=== PATIENT | female | born 1945 | race Caucasian/White ===

== ENCOUNTER 2021-07-29 16:47 | Observation (INO) | payer MEDICARE, MEDICAID, SELFPAY ==
[2021-07-29 16:56] VITALS: BP 164/75; PULSE 60; RESP 20; O2SAT 91; BMI 16.2
--- NOTE | 2021-07-29 17:35 | XRR_ITS ---
PROCEDURE INFORMATION: Exam: XR Left Knee Exam date and time: 07/29/2021 5:45 PM Age: 76 years old Clinical indication: Injury or trauma; Fall; Blunt trauma; Knee; Left; Additional info: Pain. There May be duplicate images in this file. TECHNIQUE: Imaging protocol: XR Left knee. Views: 1 or 2 views. COMPARISON: No relevant prior studies available. FINDINGS: Bones/joints: Comminuted tibial plateau fracture extending to the metaphysis with some depression of the lateral tibial plateau, better evaluated on same-day CT scan, please refer to that report for further description. Comminuted displaced fibular head fracture. Soft tissues: Normal. XR/XR knee LT 1-2V [id number] IMPRESSION: 1. Comminuted tibial plateau fracture extending to the metaphysis with some depression of the lateral tibial plateau, better evaluated on same-day CT scan, please refer to that report for further description. 2. Comminuted displaced fibular head fracture.
--- NOTE | 2021-07-29 17:39 | W.ED.EXTPRO ---
Documented by User: Flex Servin DO 07/30/21 07:57 HPI - Extremity Problem General: Chief complaint: Extremity Injury, Lower Stated complaint: POSSIBLE KNEE DISLOCATION Time Seen by Provider: 07/29/21 17:33 Source: patient Mode of arrival: ambulatory Limitations: no limitations History of Present Illness: 76-year-old female presents to the emergency room with complaint of left knee injury. She was standing on a stepstool and got her leg caught on another adjacent piece of furniture lost her balance and fell landed on her left knee. She did not strike her head she not lose consciousness. Patient was given 100 mcg of fentanyl in route and 4 of Zofran. Complaint: extremity pain and joint pain Onset (ago): hour(s) Pain Consistency: constant Location: left and knee Radiation: none Associated symptoms: Deny chest pain Review of Systems Card: Denies: chest pain, edema, dyspnea on exertion or orthopnea Resp: Denies: dyspnea, productive cough or non-productive cough GI: Denies: abdominal pain, nausea, vomiting, diarrhea or constipation : Denies: flank pain, difficulty voiding, dysuria, urinary frequency or urinary urgency [facility] ED PFSH: Medical History Afib COPD (chronic obstructive pulmonary disease) HTN (hypertension) Surgical History No significant past surgical history Family History Denies family history of CAD (coronary artery disease) Chronic kidney disease (CKD) Social History Smoking and tobacco status: current every day smoker cigarettes Number of cigarettes per day: 6-10 Alcohol intake: never Substance/Drug Use: never Housing: House Physical Exam Const: GENERAL APPEARANCE: cooperative ORIENTATION/CONSCIOUSNESS: Yes awake, Yes oriented to person, Yes oriented to place and Yes oriented to time HENMT: COMMON NORMALS: normocephalic and atraumatic HEAD & SCALP: normocephalic and atraumatic Eye: COMMON NORMALS: Equal, round and reactive pupils present and EOMs intact bilaterally PUPIL: Yes Equal, round and reactive pupils present Neck/C-Spine: COMMON NORMALS: no JVD Resp: COMMON NORMALS: normal respiratory effort, No retractions, No use of accessory muscles and clear to auscultation bilaterally AUSCULTATION: clear to auscultation bilaterally Cardio: COMMON NORMALS: no JVD, regular rate, regular rhythm and No murmurs present (Cardio) RATE: regular rate RHYTHM: regular rhythm GI: COMMON NORMALS: Soft to palpation and No hepatosplenomegaly present AUSCULTATION: Yes normoactive bowel sounds PALPATION: Yes Soft to palpation, No Tenderness to palpation present (GI), No Guarding due to palpation present (GI) and Yes No hepatosplenomegaly present Extremity: COMMON NORMALS: normal to inspection, capillary refill normal, no clubbing, cyanosis or edema, no calf tenderness and no pedal edema Neuro: SENSORIUM/ORIENTATION: Yes oriented to person, Yes oriented to place and Yes oriented to time Course Vital Signs: Vital signs: Vital Signs Temperature 99.0 F 07/30/21 07:14 Pulse Rate 64 07/30/21 07:14 Respiratory Rate 16 07/30/21 07:14 Blood Pressure 134/51 07/30/21 07:14 Pulse Oximetry 99 07/30/21 07:14 MDM - Extremity (Nontraumatic) Medical Decision Making CT pending. Care signed out to Dr. Hunter at change of shift. See final notes for diagnosis and disposition. 76-year-old female checked out to me at shift change by Dr. Baires. This lady has a tibial plateau fracture. There is depression is 3.2 mm. There is a proximal fibular fracture as well. This lady is frail. We try to get her up several times with a walker, crutches, etc., and she is not tolerating mobility that way. She lives at home alone. She will have to be admitted. Orthopedics was consulted from the ER, and recommends a knee immobilizer, and therapy for now. Lab Data Radiology Impressions Knee X-Ray 07/29/21 17:35 IMPRESSION: 1. Comminuted tibial plateau fracture extending to the metaphysis with some depression of the lateral tibial plateau, better evaluated on same-day CT scan, please refer to that report for further description. 2. Comminuted displaced fibular head fracture. Knee CT 07/29/21 18:10 IMPRESSION: 1. Comminuted tibial plateau fracture extending into the metaphysis with some depression of the lateral plateau by up to 3.2 mm. 2. Proximal fibular comminuted displaced fracture. 3. Moderate joint space effusion. 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 [employer] Fwd Exam Comprehensive Documented by User: Misha Hunter DO 07/30/21 00:53 HPI - Extremity Problem General: Chief complaint: Extremity Injury, Lower Stated complaint: POSSIBLE KNEE DISLOCATION Time Seen by Provider: 07/29/21 17:33 [facility] ED PFSH: Medical History Afib COPD (chronic obstructive pulmonary disease) HTN (hypertension) Surgical History No significant past surgical history Family History Denies family history of CAD (coronary artery disease) Chronic kidney disease (CKD) Social History Smoking and tobacco status: current every day smoker cigarettes Number of cigarettes per day: 6-10 Alcohol intake: never Substance/Drug Use: never Housing: House Course Consultations: Consultation #1: rhiannon Time: 20:41 Consultation #2: sharon Time: 20:52 Vital Signs: Vital signs: Vital Signs Temperature 99.0 F 07/30/21 07:14 Pulse Rate 64 07/30/21 07:14 Respiratory Rate 16 07/30/21 07:14 Blood Pressure 134/51 07/30/21 07:14 Pulse Oximetry 99 07/30/21 07:14 MDM - Extremity (Nontraumatic) Medical Decision Making 76-year-old female checked out to me at shift change by Dr. Baires. This lady has a tibial plateau fracture. There is depression is 3.2 mm. There is a proximal fibular fracture as well. This lady is frail. We try to get her up several times with a walker, crutches, etc., and she is not tolerating mobility that way. She lives at home alone. She will have to be admitted. Orthopedics was consulted from the ER, and recommends a knee immobilizer, and therapy for now. Lab Data Radiology Impressions Knee X-Ray 07/29/21 17:35 IMPRESSION: 1. Comminuted tibial plateau fracture extending to the metaphysis with some depression of the lateral tibial plateau, better evaluated on same-day CT scan, please refer to that report for further description. 2. Comminuted displaced fibular head fracture. Knee CT 07/29/21 18:10 IMPRESSION: 1. Comminuted tibial plateau fracture extending into the metaphysis with some depression of the lateral plateau by up to 3.2 mm. 2. Proximal fibular comminuted displaced fracture. 3. Moderate joint space effusion. 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
[2021-07-29] MEDS: ketorolac 30 mg/mL INJ IVP (17:54)
[2021-07-29 17:56] VITALS: BP 181/86; PULSE 82; RESP 18; O2SAT 93
--- NOTE | 2021-07-29 18:10 | CTR_ITS ---
PROCEDURE INFORMATION: Exam: CT Left Lower Extremity Without Contrast, Knee Exam date and time: 07/29/2021 6:23 PM Age: 76 years old Clinical indication: Injury or trauma; Blunt trauma; Knee; Left; Patient HX: Fall from step stool - L tibial plateau FX; Additional info: Tibial platue FX TECHNIQUE: Imaging protocol: CT of the Left lower extremity without contrast was performed. Exam focused on the knee. Radiation optimization: All CT scans at this facility use at least one of these dose optimization techniques: automated exposure control; mA and/or kV adjustment per patient size (includes targeted exams where dose is matched to clinical indication); or iterative reconstruction. COMPARISON: CR XR knee LT 1-2V [id number] 07/29/2021 5:45 PM RADIATION DOSE METRICS: Total DLP (mGy-cm): 135.91 FINDINGS: Bones/joints: Comminuted tibial plateau fracture extending into the metaphysis with some depression of the lateral plateau by up to 3.2 mm. Proximal fibular comminuted displaced fracture. Moderate joint space effusion. Soft tissues: Normal. CT/CT knee LT wo con* [id number] IMPRESSION: 1. Comminuted tibial plateau fracture extending into the metaphysis with some depression of the lateral plateau by up to 3.2 mm. 2. Proximal fibular comminuted displaced fracture. 3. Moderate joint space effusion.
--- NOTE | 2021-07-29 20:50 | PM.HP ---
Providers/Chief Complaint Primary Care Provider: VINCE Cooper Chief Complaint: POSSIBLE KNEE DISLOCATION History of Present Illness Lakia Benoit is a 76 year old female who does not have significant past medical history other than hypertension, nonoxygen dependent COPD, newly diagnosed A. fib, presented after sustaining a fall at home. Patient stating that he was sitting up at home when she lost her balance and fell on the palate and her left leg got stuck under the stool. She was not able to bear weight, because excruciating pain she was brought into the ER for further evaluation. She was diagnosed with tibial plateau fracture. She is hemodynamically stable, she has been given fentanyl. She was not able to get up despite getting pain medication and knee immobilizer. Hospital service requested to admit her for PT evaluation in the morning. Brother is at the bedside. Patient is full code Patient is denying chest pain, shortness of breath, fever, smoking half a pack a day, no signs of stroke, no palpitations, Review of Systems Const: Denies: chills Eyes: Denies: change in vision ENMT: Denies: throat pain Card: Denies: chest pain Resp: Denies: dyspnea GI: Denies: abdominal pain : Denies: flank pain or urinary incontinence Musc: Reports: extremity pain and extremity swelling; Denies: neck pain Skin/Breast: Denies: rash Neuro: Denies: headache(s) Psych: Denies: anxiety Endo: Denies: polyuria Antonio/Lymph: Denies: easy bruising All/Imm: Denies: urticaria Medications/Allergies Allergies Allergy/AdvReac Type Severity Reaction Status Date / Time No Known Allergies Allergy Verified 07/29/21 17:54 PFSH Acute PFSH: Medical History Afib COPD (chronic obstructive pulmonary disease) HTN (hypertension) Surgical History No significant past surgical history Family History Denies family history of CAD (coronary artery disease) Chronic kidney disease (CKD) Social History Smoking and tobacco status: current every day smoker cigarettes Number of cigarettes per day: 6-10 Alcohol intake: never Substance/Drug Use: never Housing: House Vitals/I&O/Wt Last Vital Signs Pulse 82 07/29/21 17:56 Resp 18 07/29/21 17:56 BP 181/86 07/29/21 17:56 Pulse Ox 93 07/29/21 17:56 Weight last 48 hrs Weight 41.73 kg Physical Exam Narrative: Pleasant cooperative female Sitting at the bedside She has a knee immobilizer on left side Swelling of left leg noted as compared to right leg S1, S2 variable Hemodynamically stable Saturating well on room air Left knee pain 4/10 You know, PERRLA Nonfocal neuro exam No audible stridor or wheezing Saturating well on room air Pleasant and cooperative during evaluation Looks slightly dehydrated as well A&P Assessment and plan (1) Tibial fracture: Status: Acute Plan Tibial plateau fracture Dr. Martinez recommended nonsurgical/conservative management He recommended knee immobilizer, pain management She will need at least 2 weeks of DVT prophylaxis at home She was not able to walk on her own using crutches and knee immobilizer Will admit and request PT evaluation in the morning, Home health versus short-term rehab Continue cardiac diet Outpatient orthopedic follow-up History of A. 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
[2021-07-29 21:29] VITALS: BP 113/56; PULSE 72; RESP 20; O2SAT 93
[2021-07-29] MEDS: ondansetron 2 mg/ML SDV 2 mL 4 MG IVP (21:36)
[2021-07-29 21:37] VITALS: RESP 18; O2SAT 95
[2021-07-29] MEDS: fentaNYL 50 mcg/mL INJ 2mL 25 MCG IVP (21:37)
[2021-07-29 22:00] VITALS: BMI 16.2
[2021-07-29] MEDS: enoxaparin 40 mg/0.4 mL Syringe SUBCUT (22:32)
[2021-07-29 23:06] VITALS: PULSE 71; RESP 16; O2SAT 92
[2021-07-30] VITALS (13 sets, daily range): BP systolic 76–148; BP diastolic 46–85; PULSE 59–108; RESP 16–20; TEMP 36.6–37.9; O2SAT 91–99
[2021-07-30 05:29] LABS: INR 1.32 (0.8-1.2)
[2021-07-30] MEDS: lisinopril 20 mg Tablet PO (10:19)
[2021-07-30] MEDS: atenolol 50 mg Tablet 25 MG PO (10:19)
[2021-07-30] MEDS: sennosides-docusate Tablet 1 TAB PO (10:19)
[2021-07-30] MEDS: amlodipine 10 mg Tablet PO (10:20)
[2021-07-30] MEDS: ipratropium-albuterol 3 mL Neb INHALATION ×2 (13:00→19:51)
--- NOTE | 2021-07-30 13:18 | P.PN_ITS ---
Subjective Subjective: 76-year-old female who was admitted for left tibial plateau and proximal fibula fracture. Vitals/I&O/Wt Last Vital Signs Temp 99 F 07/30/21 10:50 Pulse 68 07/30/21 13:01 Resp 18 07/30/21 13:01 BP 148/85 07/30/21 10:50 Pulse Ox 98 07/30/21 13:01 07/29/21 07/30/21 07/30/21 22:59 06:59 14:59 Intake Total 60 / 60 360 / 360 Output Total 150 / 150 300 / 300 Balance -90 / -90 60 / 60 Weight last 48 hrs Weight 92 lb Weight 92 lb Physical Exam Narrative: General: Thin, frail-appearing patient in no apparent distress. HEENT: Normocephalic, Atraumatic. External ears normal. Nasal passages patent without drainage. MMM. Resp: Diffuse wheezes throughout the lung weems. Increased AP diameter of the thorax, consistent with respiratory disease. Lung sounds are diminished thr oughout. Heart: Regular rate with irregular rhythm. No rubs, gallops, murmurs. Abd: Soft, nontender, non-distended. Extremities: No edema. Left lower extremity in knee immobilizer. There is extensive bruising on the leg. Skin: No rashes or lesions on exposed areas. Neuro: CNII-XII grossly intact. No focal motor or sensory disturbance. A&P Assessment and plan (1) Fracture of left tibial plateau: Status: Acute (2) Fracture of left proximal fibula: Status: Acute Plan 76-year-old female admitted for acute fracture of the left tibial plateau and left proximal fibula. Surgery was consulted. Dr. Martinez recommended nonsurgical/conservative management at this time. He recommended knee immobilizer, pain management. PT to evaluate and treat. Recommended front wheel walker and likely a wheelchair. bibliographic services specialist reports that patient has declined intermediate care. I will try to talk with his son in hopes that he can convince patient to change her mind. She will likely need extensive care in at least the short-term, due to her chronic illnesses, and her need to be nonweightbearing on this extremity for the next several weeks. Could consider home health, but this may not provide the level of care that she may require. Will send referral for outpatient orthopedic evaluation. She is on warfarin for chronic atrial fibrillation. INR was subtherapeutic. She is on Lovenox while in the hospital. Will need her warfarin dose adjusted prior to discharge. Respiratory to eval and treat. She normally takes breathing treatments twice a day at home and she has not received them. We will recheck labs in the morning. Will start on oral pain medication. Will discuss arrangement for DME prior to discharge. IVF: none DVT PPx: Lovenox GI PPx: None Diet: Heart Healthy Attestations Medical Necessity Statement*: Patient will need continued inpatient monitoring for pain control, physical therapy, and discharge disposition. Anticipate discharge in 1 to 2 days. 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
--- NOTE | 2021-07-30 16:16 | PC.PT ---
Had lengthy discussion with patient's family, they prefer that a wheelchair be ordered versus walker, stating they will provide walker; therefore a wheelchair is ordered at this time.
[2021-07-30] MEDS: HYDROcodone-acetaminophen 5-325 mg Tablet 1 TAB PO (18:45)
[2021-07-30] MEDS: budesonide 0.5 mg/2 mL Neb 0.25 MG INHALATION (19:51)
[2021-07-30] MEDS: enoxaparin 40 mg/0.4 mL Syringe SUBCUT (21:48)
[2021-07-31] VITALS (10 sets, daily range): BP systolic 78–132; BP diastolic 48–67; PULSE 64–112; RESP 15–76; TEMP 36.3–37.4; O2SAT 87–99
[2021-07-31] MEDS: sodium chloride 0.9% 500 ML 999 ML IV (00:21)
--- NOTE | 2021-07-31 00:27 | PC.NURSE ---
hypotensive at midnight vitals, 76/46, Dr. Moore notified, order for 500 ml bolus NS received
[2021-07-31 04:07] LABS: INR 1.31 (0.8-1.2)
[2021-07-31] MEDS: budesonide 0.5 mg/2 mL Neb 0.25 MG INHALATION ×2 (07:42→20:18)
[2021-07-31] MEDS: ipratropium-albuterol 3 mL Neb INHALATION ×2 (07:43→20:18)
[2021-07-31] MEDS: sennosides-docusate Tablet 1 TAB PO (09:43)
[2021-07-31] MEDS: amlodipine 10 mg Tablet PO (11:35)
[2021-07-31] MEDS: atenolol 50 mg Tablet 25 MG PO (11:35)
[2021-07-31] MEDS: lisinopril 20 mg Tablet PO (11:35)
--- NOTE | 2021-07-31 11:41 | PC.NURSE ---
notified Dr. Rubalcava of patient Blood Pressure being low this am. Held BP meds for Blood pressure to come up per Dr. Rubalcava
--- NOTE | 2021-07-31 12:50 | PM.PN ---
Subjective Subjective: Reports that pain is improved in her LLE. She is still having difficulties with transfers and mobility. Is working with PT. Is adamant that she does not want to go to SNF for rehab. Says that plan is for her to stay with her Brother and [id number] for the next few months so they can look after her. She is agreeable to having HH evaluate. She says that her breathing is better today. Is eating and drinking well. Has been voiding without difficulty, but still not had a BM. Medications: Reviewed: Yes Vitals/I&O/Wt Last Vital Signs Temp 98.4 F 07/31/21 11:54 Pulse 75 07/31/21 11:54 Resp 16 07/31/21 11:54 BP 120/63 07/31/21 11:54 Pulse Ox 97 07/31/21 11:54 07/30/21 07/31/21 07/31/21 22:59 06:59 14:59 Intake Total 240 / 600 600 / 1200 240 / 240 Output Total 350 / 650 200 / 850 300 / 300 Balance -110 / -50 400 / 350 -60 / -60 Weight last 48 hrs Weight 92 lb Weight 92 lb Physical Exam Narrative: General: Thin, frail-appearing patient in no apparent distress. HEENT: Normocephalic, Atraumatic. External ears normal. Nasal passages patent without drainage. MMM. Resp: Diffuse wheezes throughout the lung weems. Increased AP diameter of the thorax, consistent with respiratory disease. Lung sounds are diminished throughout. Heart: Regular rate with irregular rhythm. No rubs, gallops, murmurs. Abd: Soft, nontender, non-distended. Extremities: No edema. Left lower extremity in knee immobilizer. There is extensive bruising on the leg. Skin: No rashes or lesions on exposed areas. Neuro: CNII-XII grossly intact. No focal motor or sensory disturbance. A&P Assessment and plan (1) Fracture of left proximal fibula: Status: Acute (2) Fracture of left tibial plateau: Status: Acute (3) Afib: Status: Acute (4) HTN (hypertension): Status: Acute (5) COPD (chronic obstructive pulmonary disease): Status: Acute (6) Tibial fracture: Status: Acute Plan 76-year-old female admitted for acute fracture of the left tibial plateau and left proximal fibula. Surgery was consulted.? Dr. Martinez recommended nonsurgical/conservative management at this time. He recommended knee immobilizer, pain management. Will arrange for follow up in their office after discharge. PT to evaluate and treat.? Will need order for HH PT on discharge. She has declined SNF despite recommendations. Is agreeable to HH. A-fib is stable. Continue Lovenox. Will restart Warfarin prior at discharge. RAAT, O2 protocol. We will recheck labs in the morning. Will discuss arrangement for DME prior to discharge. IVF: none DVT PPx:? Lovenox GI PPx: None Diet:? Heart Healthy Attestations Medical Necessity Statement*: Patient will need continued inpatient monitoring for pain control, physical therapy, and discharge disposition. Anticipate discharge in 1 to 2 days. Coding Level of Care Code Acute [employer] And Service Director for Vanessa Pearce Diagnoses Fracture of left proximal fibula S82.832A Fracture of left tibial plateau S82.142A Afib I48.91 HTN (hypertension) I10 COPD (chronic obstructive pulmonary disease) J44.9 Tibial fracture S82.209A
[2021-07-31] MEDS: warfarin 2 mg Tablet 1 MG PO (15:05)
[2021-07-31] MEDS: enoxaparin 40 mg/0.4 mL Syringe SUBCUT (21:12)
[2021-07-31] MEDS: HYDROcodone-acetaminophen 5-325 mg Tablet 1 TAB PO (23:00)
[2021-08-01] VITALS: BP 105/40; PULSE 65; RESP 17; TEMP 36.8; O2SAT 97
[2021-08-01 04:00] VITALS: BP 116/58; PULSE 62; RESP 16; TEMP 37.1; O2SAT 98
[2021-08-01 04:50] LABS: INR 1.19 (0.8-1.2)
[2021-08-01 08:00] VITALS: BP 129/61; PULSE 65; RESP 12; TEMP 36.9; O2SAT 98
[2021-08-01 09:00] VITALS: PULSE 72; RESP 18; O2SAT 95
[2021-08-01] MEDS: amlodipine 10 mg Tablet PO (09:36)
[2021-08-01] MEDS: atenolol 50 mg Tablet 25 MG PO (09:36)
[2021-08-01] MEDS: lisinopril 20 mg Tablet PO (09:36)
[2021-08-01] MEDS: sennosides-docusate Tablet 1 TAB PO (09:37)
[2021-08-01] MEDS: ipratropium-albuterol 3 mL Neb INHALATION (09:38)
[2021-08-01] MEDS: budesonide 0.5 mg/2 mL Neb 0.25 MG INHALATION (09:38)
[2021-08-01 12:00] VITALS: BP 103/56; PULSE 64; RESP 13; TEMP 36.8; O2SAT 95
--- NOTE | 2021-08-01 13:26 | PM.DCS ---
Discharge Providers Date of Admission: 07/29/21 20:53 Date of Discharge: August 01, 2021 Attending Provider at Admission: Ruddy Moore MD Attending Provider at Discharge: Oxana Granados MD Primary Care Provider: VINCE Cooper Diagnoses at Discharge Discharge Diagnosis (1) Fracture of left proximal fibula: Status: Acute (2) Fracture of left tibial plateau: Status: Acute (3) Afib: Status: Acute (4) HTN (hypertension): Status: Acute (5) COPD (chronic obstructive pulmonary disease): Status: Acute (6) Tibial fracture: Status: Acute Reason for Visit Reason for Visit: POSSIBLE KNEE DISLOCATION Brief History: Lakia Benoit is a 76 year old female who does not have significant past medical history other than hypertension, nonoxygen dependent COPD, newly diagnosed A. fib, presented after sustaining a fall at home.? Patient stating that he was sitting up at home when she lost her balance and fell on the palate and her left leg got stuck under the stool.? She was not able to bear weight, because excruciating pain she was brought into the ER for further evaluation.? She was diagnosed with tibial plateau fracture.? She is hemodynamically stable, she has been given fentanyl.? She was not able to get up despite getting pain medication and knee immobilizer.? Hospital service requested to admit her for PT evaluation in the morning.? Brother is at the bedside.? Patient is full code Patient is denying chest pain, shortness of breath, fever, smoking half a pack a day, no signs of stroke, no palpitations, Hospital Course Hospital Course She was admitted for acute fracture of left tibial plateau and left proximal fibula. Surgery was consulted from the ER. ER physician spoke to Dr. Martinez who recommended nonsurgical conservative management at this time. He recommended knee immobilizer and pain management. Patient is to follow-up with him within 1 week of discharge. shelter facility was recommended to the patient and she declined the offer despite recommendations. She was agreeable to home health which was set up at discharge. Patient does have a history of A. fib as well. She was on therapeutic dose of Lovenox during hospital stay. She was to be restarted on warfarin at discharge. Patient was discharged on Lovenox bridge and restarting warfarin. Patient is at high risk for DVT due to her fracture and therefore Lovenox bridge was given. Patient is to follow-up with primary care doctor and to follow-up on her INRs. She has been on warfarin for years. All her home medications were restarted at discharge. Patient was discharged home in stable condition. All questions were answered to her satisfaction. Of note the patient was on Cardizem at home which was not given to her during hospital stay. Her lisinopril was also cut down to 20 mg a day. Amlodipine 5 mg was added. Blood pressure was stable on this regimen. Heart rate remained stable throughout hospital stay. Cardizem was held at admission due to lower blood pressures. Physical Exam Narrative: General: Thin, frail-appearing patient in no apparent distress.? Resp: Clear to auscultation bilaterally but diminished breath sounds at the bases. Heart: Regular rate with irregular rhythm.? No rubs, gallops, murmurs. Abd: Soft, nontender, non-distended. Extremities:? No edema.? Left lower extremity in knee immobilizer.? There is extensive bruising on the leg. Discharge Data Studies Completed and Pending Completed Studies During Hospitalization Category Date Time Status CT knee LT wo con* [id number] Stat Cat Scan 07/29/21 18:10 Completed XR knee LT 1-2V [id number] Stat Exams 07/29/21 17:35 Completed Pending at discharge Category Date Time Status CBC Auto Diff [Complete Blood Count w/Auto] Routine Lab 08/01/21 12:57 Ordered CMP [Comprehensive Metabolic Panel] Routine Lab 08/01/21 12:57 Ordered Magnesium Routine Lab 08/01/21 12:57 Ordered Radiology Impressions Knee X-Ray 07/29/21 17:35 IMPRESSION: 1. Comminuted tibial plateau fracture extending to the metaphysis with some depression of the lateral tibial plateau, better evaluated on same-day CT scan, please refer to that report for further description. 2. Comminuted displaced fibular head fracture. Knee CT 07/29/21 18:10 IMPRESSION: 1. Comminuted tibial plateau fracture extending into the metaphysis with some depression of the lateral plateau by up to 3.2 mm. 2. Proximal fibular comminuted displaced fracture. 3. Moderate joint space effusion. Laboratory Results PT 15.50 SECONDS (12.1-14.9) H 08/01/21 03:46 INR 1.19 (0.8-1.2) 08/01/21 03:46 Vitals Last Vital Signs Temp 98.2 F 08/01/21 12:00 Pulse 64 08/01/21 12:00 Resp 13 08/01/21 12:00 BP 103/56 08/01/21 12:00 Pulse Ox 95 08/01/21 12:00 Discharge Plan Discharge Patient Disposition: Home Health Service Condition: Stable Prescriptions: New hydrocodone-acetaminophen 5-325 mg Tablet 1 tab PO Q8H PRN (Reason: Moderate Pain) 7 Days Qty: 14 0RF amlodipine 10 mg Tablet 5 mg PO DAILY 30 Days Qty: 30 0RF lactulose 20 gram/30 mL Solution 15 g PO Q12H 7 Days Qty: 315 0RF Rx Instructions: Stop if you get diarrhea. Lovenox 40 mg/0.4 mL syringe 40 mg SUBCUT DAILY 5 Days Qty: 2 0RF folic acid 1 mg tablet 1,000 mcg PO DAILY 30 Days Qty: 30 0RF Vitamin B-12 1,000 mcg tablet 1,000 mcg PO DAILY 30 Days Qty: 30 0RF Continued pravastatin 40 mg Tablet 40 mg PO DAILY 0RF atenolol 25 mg Tablet 25 mg PO DAILY 0RF budesonide 0.25 mg/2 mL Suspension For Nebulization 0.5 mg INHALATION BID 0RF formoterol fumarate [Perforomist] 20 mcg/2 mL Solution For Nebulization 20 mcg inhalation BID 0RF (DME) Nebulizer 0RF warfarin 2 mg tablet 2 mg PO DAILY 0RF albuterol sulfate 90 mcg/actuation HFA aerosol inhaler 2 puff INHALATION Q6H PRN (Reason: Shortness Of Breath) 0RF Changed lisinopril 40 mg Tablet 20 mg PO DAILY Qty: 0 0RF Discontinued diltiazem HCl 180 mg Tablet Extended Release 24 Hr 180 mg PO DAILY 0RF Discharge Orders: Discharge Order (Routine); Ordered 08/01/21 Ordered By: Oxana Granados Other Ambulatory Orders: Immunochemical Fecal OCB (Routine) Timeframe: 1 Day Facility: [facility] - Location: Lab - Main Lab Ordered By: Oxana Granados DME: Walker (Order) Location: None Selected Ordered By: Emre Rubalcava DME: Wheelchair (Order) Location: None Selected Ordered By: Emre Rubalcava [place] [facility] [place] [facility] [place] [Outside] Riky Martinez MD [Physician] - 08/09/21 10:00 am Rosalinda Martin FNP [Primary Care Provider] - 08/05/21 11:00 am Discharge Diet: Cardiac and Low Salt Discharge Activity: Increase activity as tolerated, Use walker/crutches as instructed and As per PT/OT instructions Patient Instructions: Hydrocodone/Acetaminophen (By mouth), Lactulose (By mouth), Amlodipine (By mouth), Enoxaparin (By injection), Opioid Safety Activity Restrictions/Additional Instructions: You will need to have your INR monitored and to keep in range of 2-3. Please take the lovenox injections for 5 days ordered for you daily along with your warfarin. Please follow up with primary care doctor within 4-7 days of hospital discharge for further pain management. Discharge Attestations Time Spent in Discharge Care*: less than 30 min Quality Metrics Clinical Quality Measures [ No reported AMI, CVA or VTE this stay] Coding Level of Care Code Acute [facility] note Diagnoses Fracture of left proximal fibula S82.832A Fracture of left tibial plateau S82.142A Afib I48.91 HTN (hypertension) I10 COPD (chronic obstructive pulmonary disease) J44.9 Tibial fracture S82.209A
--- NOTE | 2021-08-01 13:31 | ECG_ITS ---
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 Measurements Intervals [place] Rate: 73 P: 81 OK: 134 QRS: 68 QRSD: 98 T: 60 QT: 365 QTc: 403 Interpretive Statements SINUS RHYTHM INCOMPLETE RIGHT BUNDLE BRANCH BLOCK [90+ ms QRS DURATION, TERMINAL R IN V1/V2, 40+ ms S IN I/aVL/V4/V5/V6] No previous ECG available for comparison Electronically Signed On 08-01-2021 21:41:24 CDT by Gerardo Gomez M.D. [email or web address]
[2021-08-01] MEDS: lactulose oral liq 20 gm/30 mL UDC PO (14:42)
[2021-08-01 15:13] LABS: Basophils # 0.1 10^3/uL (0.0-0.1); Basophils % 0.5 %; Eosinophils # 0.2 10^3/uL (0.0-0.8); Eosinophils % 2.2 %; Hemoglobin 10.8 g/dL (11.5-15.3); Lymphocytes # 1.3 10^3/uL (0.8-4.8); Lymphocytes % 13.4 %; Mean Corpuscular HGB Conc 32.7 g/dL (30.0-36.0); Mean Corpuscular Hemoglobin 33.9 pg (28.0-34.0); Mean Corpuscular Volume 103.4 fl (81-99); Mean Platelet Volume 9.4 fL (7.4-10.4); Monocytes # 1.1 10^3/uL (0.2-0.9); Neutrophils # 7.16 10^3/uL (1.8-7.7); Neutrophils % 72.5 %; Nucleated Red Blood Cells % 0 %; Platelet Count 238 10^3/cmm (130-400); Red Blood Count 3.19 10^6/uL (4.1-5.3); White Blood Count 9.9 10^3/uL (4.0-10.0)
[2021-08-01 15:36] LABS: Alanine Aminotransferase 18 U/L (0-33); Albumin Level 3.3 g/dL (3.5-5.2); Alkaline Phosphatase 70 IU/L (35-105); Anion Gap 15.1 (5-19); Aspartate Amino Transferase 22 U/L (0-32); Blood Urea Nitrogen 17 mg/dL (8-23); Carbon Dioxide 28 mmol/L (22-29); Chloride 97 mmol/L (98-107); Creatinine Clr Calc Pharmacy 40.0275; Globulin 2.4 g/dL (1.3-4.6); Glucose 114 mg/dL (65-115); Magnesium 1.9 mg/dL (1.7-2.3); Osmolality Calculated 284 mOsm/kg (285-295); Potassium 4.1 mmol/L (3.5-5.1); Sodium 136 mmol/L (136-145); Total Bilirubin 0.3 mg/dL (0.15-1.2); Total Protein 5.7 g/dL (6.6-8.7)
[2021-08-01 16:00] VITALS: BP 152/72; PULSE 77; RESP 12; TEMP 37.2; O2SAT 91
== END 2021-08-01 16:30 | disposition home health service (06) ==
LOC: ER 20:42 → MEDSURG 21:07
PROVIDERS: Admitting Provider Internal Medicine; Emergency Provider Emergency Medicine; PCP Nurse Practitioner Family; Visit Provider Internal Medicine
DX: S82.142A Displaced bicondylar fracture of left tibia, initial encounter for closed fracture (principal); X58.XXXA Exposure to other specified factors, initial encounter; I48.91 Unspecified atrial fibrillation; I10 Essential (primary) hypertension; F17.210 Nicotine dependence, cigarettes, uncomplicated; D53.9 Nutritional anemia, unspecified; J43.9 Emphysema, unspecified
CPT/HCPCS: 36415; 73560; 73700; 80053; 83735; 85025; 85610; 93005; 94640; 94664; 96372; 96374; 96375; 97116; 97161; 97530; 99285; G0378; J1650; J1885; J2405; J3010; J7040; J7626

== ENCOUNTER → 2021-08-09 10:04 | Outpatient (BNVA) | payer MEDICARE, MEDICAID, SELFPAY | PROVIDERS: PCP Nurse Practitioner Family; Visit Provider Nurse Practitioner Family | DX: S82.832A Other fracture of upper and lower end of left fibula, initial encounter for closed fracture (principal); W19.XXXA Unspecified fall, initial encounter; S82.142A Displaced bicondylar fracture of left tibia, initial encounter for closed fracture | CPT/HCPCS: 73560; 99204 ==

== ENCOUNTER → 2021-08-25 12:53 | Outpatient (BNVA) | payer MEDICARE, MEDICAID, SELFPAY | PROVIDERS: PCP Nurse Practitioner Family; Visit Provider Nurse Practitioner Family | DX: S82.142D Displaced bicondylar fracture of left tibia, subsequent encounter for closed fracture with routine healing (principal); W19.XXXD Unspecified fall, subsequent encounter | CPT/HCPCS: 73562; 99214 ==

== ENCOUNTER 2021-08-25 15:29 | Outpatient (CLI) | payer MEDICARE, MEDICAID, SELFPAY | END 2021-08-25 15:30 | disposition home or self-care (01) | LOC: SPT 15:30 | PROVIDERS: PCP Nurse Practitioner Family; Visit Provider Nurse Practitioner Family | DX: Z46.89 Encounter for fitting and adjustment of other specified devices (principal); S82.142D Displaced bicondylar fracture of left tibia, subsequent encounter for closed fracture with routine healing; X58.XXXD Exposure to other specified factors, subsequent encounter | CPT/HCPCS: 97760; L1812 ==